=== PATIENT | male | born 1990 | race African-American/Black ===

== ENCOUNTER 2021-04-07 08:38 | Inpatient (IN) | payer OTHER ==
[2021-04-07] MEDS ORDERED: BISMUTH SUBSALICYLATE 524 MG/30 ML PO PRN (10:51)
[2021-04-07] MEDS ORDERED: MAG HYDROX/AL HYDROX/SIMETH 30 ML UNIT-DOSE CUP PO PRN (10:51)
[2021-04-07] MEDS ORDERED: chlordiazePOXIDE HCL 25 MG CAPSULE PO ONE (10:51)
[2021-04-07] MEDS ORDERED: chlordiazePOXIDE HCL 25 MG CAPSULE PO PRN (10:51)
[2021-04-07] MEDS ORDERED: MAGNESIUM HYDROX 2400MG/30ML ORAL SUSPENSION 30 ML CUP PO PRN (10:51)
[2021-04-07] MEDS ORDERED: MAGNESIUM CITRATE 300 ML BOTTLE PO PRN (10:51)
[2021-04-07] MEDS ORDERED: ACETAMINOPHEN 325 MG TABLET (FP) PO PRN (10:51)
[2021-04-07] MEDS ORDERED: MENTHOL/PHENOL 1 EACH UD MM PRN (10:51)
[2021-04-07] MEDS ORDERED: ALBUTEROL SO4 HFA INHALER IH PRN (11:00)
[2021-04-07 12:01] VITALS: BMI 20.9
[2021-04-07] MEDS: PRENATAL VITAMINS W/ FOLIC ACID TABLET (FP) PO SCH (12:10)
[2021-04-07] MEDS: chlordiazePOXIDE HCL 25 MG CAPSULE PO SCH ×2 (17:55→22:25)
[2021-04-07] MEDS: THIAMINE HCL 100 MG TABLET (FP) PO SCH (22:26)
[2021-04-07] MEDS: MELATONIN 5 MG TABLETS PO SCH (22:26)
[2021-04-08] MEDS: chlordiazePOXIDE HCL 25 MG CAPSULE PO SCH ×4 (06:30→22:12)
[2021-04-08 10:15] LABS: HEMATOCRIT 39.6 % (35.4-49); HEMOGLOBIN 12.6 GM/dL (11.7-16.9); MCH 26.6 pg (25.7-33.7); MCHC 31.8 g/dl (32.0-35.9); MEAN CELL VOLUME 83.6 fl (80-96); MEAN PLT VOLUME 8.3 fl (7.5-11.1); PLATELET COUNT 265 10^3/uL (134-434); RBC 4.74 M/mm3 (4.00-5.60); RDW 13.1 % (11.9-15.9); WHITE BLOOD COUNT 4.2 K/mm3 (4.0-10.0)
[2021-04-08 10:18] LABS: ALBUMIN 4.3 g/dl (3.4-5.0); CALCIUM 9.3 mg/dL (8.5-10.1)
[2021-04-08] MEDS: PRENATAL VITAMINS W/ FOLIC ACID TABLET (FP) PO SCH (10:18)
[2021-04-08 10:19] LABS: BLOOD UREA NITROGEN 6.4 mg/dL (7-18)
[2021-04-08] MEDS: FLUoxetine HCL 20 MG CAPSULE PO SCH (10:19)
[2021-04-08 10:21] LABS: CREATININE 0.8 mg/dL (0.55-1.3)
[2021-04-08 10:22] LABS: TOT PROT 7.6 g/dl (6.4-8.2)
[2021-04-08 10:23] LABS: BILIRUBIN,TOTAL 0.6 mg/dL (0.2-1)
[2021-04-08 11:57] LABS: SICKLE CELL SCREEN NEGATIVE (NEGATIVE)
[2021-04-08] MEDS: hydrOXYzine PAMOATE 25 MG CAPSULE (FP) PO SCH ×4 (12:44→22:12)
[2021-04-08] MEDS: ACETAMINOPHEN 325 MG TABLET (FP) PO PRN (17:38)
[2021-04-08] MEDS: MELATONIN 5 MG TABLETS PO SCH (22:12)
[2021-04-08] MEDS: THIAMINE HCL 100 MG TABLET (FP) PO SCH (22:12)
[2021-04-09] MEDS: chlordiazePOXIDE HCL 25 MG CAPSULE PO SCH ×4 (05:25→22:08)
[2021-04-09] MEDS: hydrOXYzine PAMOATE 25 MG CAPSULE (FP) PO SCH ×6 (05:26→22:08)
[2021-04-09] MEDS: PRENATAL VITAMINS W/ FOLIC ACID TABLET (FP) PO SCH (10:23)
[2021-04-09] MEDS: FLUoxetine HCL 20 MG CAPSULE PO SCH (10:23)
[2021-04-09] MEDS: ACETAMINOPHEN 325 MG TABLET (FP) PO PRN (10:24)
[2021-04-09] MEDS: THIAMINE HCL 100 MG TABLET (FP) PO SCH (22:07)
[2021-04-09] MEDS: MELATONIN 5 MG TABLETS PO SCH (22:08)
[2021-04-09] MEDS: ONDANSETRON *ODT* 4 MG TABLET SL PRN (22:08)
[2021-04-10] MEDS ORDERED: chlordiazePOXIDE HCL 10 MG CAPSULE PO PRN
[2021-04-10] MEDS: hydrOXYzine PAMOATE 25 MG CAPSULE (FP) PO SCH ×6 (03:33→22:07)
[2021-04-10] MEDS: chlordiazePOXIDE HCL 10 MG CAPSULE PO SCH ×4 (05:25→22:07)
[2021-04-10] MEDS: ACETAMINOPHEN 325 MG TABLET (FP) PO PRN ×2 (05:25→10:29)
[2021-04-10] MEDS: ONDANSETRON *ODT* 4 MG TABLET SL PRN (07:29)
[2021-04-10] MEDS: PRENATAL VITAMINS W/ FOLIC ACID TABLET (FP) PO SCH (10:29)
[2021-04-10] MEDS: FLUoxetine HCL 20 MG CAPSULE PO SCH (10:29)
[2021-04-10] MEDS: IBUPROFEN 400 MG TABLET (FP) PO PRN (17:42)
[2021-04-10] MEDS: MELATONIN 5 MG TABLETS PO SCH (22:07)
[2021-04-10] MEDS: THIAMINE HCL 100 MG TABLET (FP) PO SCH (22:07)
[2021-04-11] MEDS: hydrOXYzine PAMOATE 25 MG CAPSULE (FP) PO SCH ×6 (03:50→22:10)
[2021-04-11] MEDS: chlordiazePOXIDE HCL 10 MG CAPSULE PO SCH ×2 (05:18→17:41)
[2021-04-11] MEDS: ONDANSETRON *ODT* 4 MG TABLET SL PRN (05:20)
[2021-04-11] MEDS: PRENATAL VITAMINS W/ FOLIC ACID TABLET (FP) PO SCH (10:02)
[2021-04-11] MEDS: FLUoxetine HCL 20 MG CAPSULE PO SCH (10:02)
[2021-04-11] MEDS: METHOCARBAMOL 500 MG TABLET PO PRN ×2 (10:07→17:42)
[2021-04-11] MEDS ORDERED: chlordiazePOXIDE 5 MG CAPSULE ONE (16:48)
[2021-04-11] MEDS: NICOTINE 10 MG CARTRIDGE (INHALER) IH PRN ×2 (17:44→22:12)
[2021-04-11] MEDS: THIAMINE HCL 100 MG TABLET (FP) PO SCH (22:10)
[2021-04-11] MEDS: MELATONIN 5 MG TABLETS PO SCH (22:10)
[2021-04-11] MEDS: IBUPROFEN 400 MG TABLET (FP) PO PRN (22:28)
[2021-04-12] MEDS: METHYL SALICYLATE/MENTHOL OINT 30 GM TUBE TP SCH ×2 (00:55→11:34)
[2021-04-12] MEDS: hydrOXYzine PAMOATE 25 MG CAPSULE (FP) PO SCH ×3 (01:11→11:31)
[2021-04-12] MEDS ORDERED: chlordiazePOXIDE HCL 10 MG CAPSULE PO ONE (05:00)
[2021-04-12 07:26] VITALS: TEMP 98.4
[2021-04-12 08:58] VITALS: BP 111/72; PULSE 96
[2021-04-12] MEDS: PRENATAL VITAMINS W/ FOLIC ACID TABLET (FP) PO SCH (11:28)
[2021-04-12] MEDS: ONDANSETRON *ODT* 4 MG TABLET SL PRN (11:31)
[2021-04-12] MEDS: FLUoxetine HCL 20 MG CAPSULE PO SCH (11:31)
[2021-04-12] MEDS: IBUPROFEN 400 MG TABLET (FP) PO PRN (11:33)
== END 2021-04-12 12:02 | disposition other institution (70) | DRG 775 ==
LOC: YASAS 08:38 → Y3N 13:13
PROVIDERS: ADMIT Allergy & Immunology; ATTEND Allergy & Immunology
PROC: HZ2ZZZZ Detoxification Services for Substance Abuse Treatment (ICD-10-PCS; principal; 2021-04-07)
DX: F10.230 Alcohol dependence with withdrawal, uncomplicated (principal); F17.210 Nicotine dependence, cigarettes, uncomplicated; F10.280 Alcohol dependence with alcohol-induced anxiety disorder; F10.282 Alcohol dependence with alcohol-induced sleep disorder; F32.A Depression, unspecified; F43.10 Post-traumatic stress disorder, unspecified; F41.9 Anxiety disorder, unspecified; J45.20 Mild intermittent asthma, uncomplicated; M54.50 Low back pain, unspecified; G89.29 Other chronic pain; Z96.643 Presence of artificial hip joint, bilateral; Z86.69 Personal history of other diseases of the nervous system and sense organs; Z88.5 Allergy status to narcotic agent; Z91.018 Allergy to other foods; Z86.59 Personal history of other mental and behavioral disorders
CPT/HCPCS: 36415; 80053; 85027; 85660; 86780; C9803-CS; Q0162; U0003; U0005

== ENCOUNTER 2021-04-12 12:13 | Inpatient (IN) | payer OTHER ==
[2021-04-12] MEDS ORDERED: ACETAMINOPHEN 325 MG TABLET (FP) PO PRN (14:38)
[2021-04-12] MEDS ORDERED: MAG HYDROX/AL HYDROX/SIMETH 30 ML UNIT-DOSE CUP PO PRN (14:38)
[2021-04-12] MEDS ORDERED: MAGNESIUM HYDROX 2400MG/30ML ORAL SUSPENSION 30 ML CUP PO PRN (14:38)
[2021-04-12] MEDS ORDERED: P-EPHED 60MG/TRIPROLIDI 2.5MG TABLET PO PRN (14:38)
[2021-04-12] MEDS ORDERED: IBUPROFEN 400 MG TABLET (FP) PO PRN (14:38)
[2021-04-12] MEDS ORDERED: MAGNESIUM CITRATE 300 ML BOTTLE PO PRN (14:38)
[2021-04-12] MEDS ORDERED: NICOTINE 10 MG CARTRIDGE (INHALER) IH PRN (14:38)
[2021-04-12] MEDS ORDERED: guaiFENesin 200 MG/10 ML 10 ML UNIT-DOSE CUPS PO PRN (14:38)
[2021-04-12] MEDS ORDERED: LOPERAMIDE HCL 2 MG CAPSULE PO PRN (14:38)
[2021-04-12] MEDS ORDERED: ALBUTEROL SO4 HFA INHALER IH PRN (14:41)
[2021-04-12] MEDS ORDERED: PATIENT'S OWN MEDICATION (NON-FORMULARY) (Hydroxyzine Hcl [Hydroxyzine Hcl] 50 MG Tablet) PO SCH (14:45)
[2021-04-12] MEDS: NICOTINE 7 MG/24 HOURS TOPICAL PATCH TD SCH (15:51)
[2021-04-12] MEDS: PRENATAL VITAMINS W/ FOLIC ACID TABLET (FP) PO SCH (15:51)
[2021-04-12] MEDS: hydrOXYzine PAMOATE 50 MG CAPSULE (FP) PO SCH (18:05)
[2021-04-12] MEDS ORDERED: MELATONIN 5 MG TABLETS PO SCH (22:00)
[2021-04-12] MEDS ORDERED: THIAMINE HCL 100 MG TABLET (FP) PO SCH (22:00)
[2021-04-13] MEDS: hydrOXYzine PAMOATE 50 MG CAPSULE (FP) PO SCH ×3 (00:12→12:10)
[2021-04-13 09:46] VITALS: BP 96/63; PULSE 91; TEMP 98.7
[2021-04-13] MEDS ORDERED: FLUoxetine HCL 20 MG CAPSULE PO SCH (10:00)
[2021-04-13] MEDS: NICOTINE 7 MG/24 HOURS TOPICAL PATCH TD SCH ×2 (10:22→10:53)
[2021-04-13] MEDS: PRENATAL VITAMINS W/ FOLIC ACID TABLET (FP) PO SCH (10:24)
== END 2021-04-13 14:35 | disposition home or self-care (01) | DRG 772 ==
LOC: YASAS 12:13 → Y5N 12:14
PROVIDERS: ADMIT Allergy & Immunology; ATTEND Allergy & Immunology
PROC: HZ42ZZZ Group Counseling for Substance Abuse Treatment, Cognitive-Behavioral (ICD-10-PCS; principal; 2021-04-12)
DX: F10.20 Alcohol dependence, uncomplicated (principal); F32.A Depression, unspecified; U07.1 COVID-19; A08.4 Viral intestinal infection, unspecified; J45.909 Unspecified asthma, uncomplicated; G40.909 Epilepsy, unspecified, not intractable, without status epilepticus; Z86.59 Personal history of other mental and behavioral disorders; Z88.5 Allergy status to narcotic agent; Z91.018 Allergy to other foods
CPT/HCPCS: 36415; 86803; 87070; C9803; U0003; U0005

== ENCOUNTER 2021-06-20 01:10 | Inpatient (IN) | payer OTHER ==
[2021-06-20 01:39] VITALS: BMI 21.8
[2021-06-20] MEDS ORDERED: MAGNESIUM CITRATE 300 ML BOTTLE PO PRN (02:26)
[2021-06-20] MEDS ORDERED: ACETAMINOPHEN 325 MG TABLET (FP) PO PRN (02:26)
[2021-06-20] MEDS ORDERED: ONDANSETRON *ODT* 4 MG TABLET SL PRN (02:26)
[2021-06-20] MEDS ORDERED: MAG HYDROX/AL HYDROX/SIMETH 30 ML UNIT-DOSE CUP PO PRN (02:26)
[2021-06-20] MEDS ORDERED: MAGNESIUM HYDROX 2400MG/30ML ORAL SUSPENSION 30 ML CUP PO PRN (02:26)
[2021-06-20] MEDS ORDERED: NICOTINE 10 MG CARTRIDGE (INHALER) IH PRN (02:26)
[2021-06-20] MEDS ORDERED: BISMUTH SUBSALICYLATE 524 MG/30 ML PO PRN (02:26)
[2021-06-20] MEDS ORDERED: MENTHOL/PHENOL 1 EACH UD MM PRN (02:26)
[2021-06-20] MEDS ORDERED: LOPERAMIDE HCL 2 MG CAPSULE PO PRN (02:26)
[2021-06-20] MEDS ORDERED: chlordiazePOXIDE HCL 25 MG CAPSULE PO PRN (02:53)
[2021-06-20] MEDS ORDERED: hydrOXYzine PAMOATE 25 MG CAPSULE (FP) PO SCH (06:00)
[2021-06-20] MEDS: chlordiazePOXIDE HCL 25 MG CAPSULE PO SCH ×4 (07:05→22:10)
[2021-06-20] MEDS: ACETAMINOPHEN 325 MG TABLET (FP) PO PRN (07:07)
[2021-06-20] MEDS: METHOCARBAMOL 500 MG TABLET PO PRN (10:18)
[2021-06-20] MEDS: PRENATAL VITAMINS W/ FOLIC ACID TABLET (FP) PO SCH (10:18)
[2021-06-20] MEDS: hydrOXYzine PAMOATE 25 MG CAPSULE (FP) PO PRN (10:18)
[2021-06-20] MEDS: FLUoxetine HCL 20 MG CAPSULE PO SCH (10:18)
[2021-06-20] MEDS: IBUPROFEN 400 MG TABLET (FP) PO PRN (10:22)
[2021-06-20] MEDS ORDERED: ALBUTEROL SO4 HFA INHALER IH PRN (14:17)
[2021-06-20] MEDS: THIAMINE HCL 100 MG TABLET (FP) PO SCH (22:10)
[2021-06-20] MEDS: PATIENT'S OWN MEDICATION (NON-FORMULARY) (Spironolactone [Aldactone] 50 MG Tablet) PO SCH (22:10)
[2021-06-20] MEDS ORDERED: SUVOREXANT 10 MG TABLET PO ONE (23:15)
[2021-06-20] MEDS: MELATONIN 5 MG TABLETS PO SCH (23:44)
[2021-06-21] MEDS: chlordiazePOXIDE HCL 25 MG CAPSULE PO SCH ×4 (05:53→22:21)
[2021-06-21 10:46] LABS: HEMATOCRIT 36.8 % (35.4-49); HEMOGLOBIN 12.5 GM/dL (11.7-16.9); MCH 26.3 pg (25.7-33.7); MEAN CELL VOLUME 77.3 fl (80-96); MEAN PLT VOLUME 7.7 fl (7.5-11.1); PLATELET COUNT 310 10^3/uL (134-434); RBC 4.76 M/mm3 (4.00-5.60); RDW 12.6 % (11.9-15.9); WHITE BLOOD COUNT 4.3 K/mm3 (4.0-10.0)
[2021-06-21] MEDS: PATIENT'S OWN MEDICATION (NON-FORMULARY) (Spironolactone [Aldactone] 50 MG Tablet) PO SCH ×2 (10:51→22:21)
[2021-06-21] MEDS: PRENATAL VITAMINS W/ FOLIC ACID TABLET (FP) PO SCH (10:51)
[2021-06-21] MEDS: FLUoxetine HCL 20 MG CAPSULE PO SCH (10:52)
[2021-06-21] MEDS: hydrOXYzine PAMOATE 25 MG CAPSULE (FP) PO PRN ×2 (10:52→18:18)
[2021-06-21] MEDS: IBUPROFEN 400 MG TABLET (FP) PO PRN (10:55)
[2021-06-21 11:27] LABS: CALCIUM 9.1 mg/dL (8.5-10.1)
[2021-06-21 11:28] LABS: ALBUMIN 4.1 g/dl (3.4-5.0); BLOOD UREA NITROGEN 15.6 mg/dL (7-18)
[2021-06-21 11:31] LABS: CREATININE 1.1 mg/dL (0.55-1.3)
[2021-06-21 11:33] LABS: BILIRUBIN,TOTAL 0.5 mg/dL (0.2-1); TOT PROT 7.3 g/dl (6.4-8.2)
[2021-06-21] MEDS: MELATONIN 5 MG TABLETS PO SCH (22:20)
[2021-06-21] MEDS: THIAMINE HCL 100 MG TABLET (FP) PO SCH (22:21)
[2021-06-22] MEDS ORDERED: chlordiazePOXIDE HCL 10 MG CAPSULE PO PRN
[2021-06-22] MEDS: ACETAMINOPHEN 325 MG TABLET (FP) PO PRN ×2 (03:36→18:24)
[2021-06-22] MEDS: chlordiazePOXIDE HCL 10 MG CAPSULE PO SCH ×4 (05:55→22:21)
[2021-06-22] MEDS: PRENATAL VITAMINS W/ FOLIC ACID TABLET (FP) PO SCH (10:22)
[2021-06-22] MEDS: PATIENT'S OWN MEDICATION (NON-FORMULARY) (Spironolactone [Aldactone] 50 MG Tablet) PO SCH ×2 (10:22→22:21)
[2021-06-22] MEDS: METHOCARBAMOL 500 MG TABLET PO PRN (10:23)
[2021-06-22] MEDS: FLUoxetine HCL 20 MG CAPSULE PO SCH (10:23)
[2021-06-22] MEDS: hydrOXYzine PAMOATE 25 MG CAPSULE (FP) PO PRN ×2 (13:52→22:20)
[2021-06-22] MEDS ORDERED: SUVOREXANT 10 MG TABLET PO PRN (22:00)
[2021-06-22] MEDS: THIAMINE HCL 100 MG TABLET (FP) PO SCH (22:20)
[2021-06-22] MEDS: MELATONIN 5 MG TABLETS PO SCH (22:20)
[2021-06-22] MEDS: SPIRONOLACTONE 25 MG TABLET PO SCH (22:23)
[2021-06-23] MEDS ORDERED: chlordiazePOXIDE HCL 10 MG CAPSULE PO SCH (05:00)
[2021-06-23] MEDS: IBUPROFEN 400 MG TABLET (FP) PO PRN (05:21)
[2021-06-23 05:57] VITALS: TEMP 97.5
[2021-06-23] MEDS: hydrOXYzine PAMOATE 25 MG CAPSULE (FP) PO PRN (10:44)
[2021-06-23] MEDS: PRENATAL VITAMINS W/ FOLIC ACID TABLET (FP) PO SCH (10:44)
[2021-06-23] MEDS: METHOCARBAMOL 500 MG TABLET PO PRN (10:44)
[2021-06-23] MEDS: FLUoxetine HCL 20 MG CAPSULE PO SCH (10:44)
[2021-06-23] MEDS: PATIENT'S OWN MEDICATION (NON-FORMULARY) (Spironolactone [Aldactone] 50 MG Tablet) PO SCH (10:47)
[2021-06-23] MEDS: SPIRONOLACTONE 25 MG TABLET PO SCH (10:47)
[2021-06-23 13:34] VITALS: BP 108/69; PULSE 88
[2021-06-24] MEDS ORDERED: chlordiazePOXIDE HCL 10 MG CAPSULE PO ONE (05:00)
== END 2021-06-23 13:16 | disposition left against medical advice (07) | DRG 770 ==
LOC: YASAS 01:10 → Y6N 02:54
PROVIDERS: ADMIT Allergy & Immunology; ATTEND Allergy & Immunology
PROC: HZ2ZZZZ Detoxification Services for Substance Abuse Treatment (ICD-10-PCS; principal; 2021-06-20)
DX: F10.230 Alcohol dependence with withdrawal, uncomplicated (principal); F10.280 Alcohol dependence with alcohol-induced anxiety disorder; F10.282 Alcohol dependence with alcohol-induced sleep disorder; F43.10 Post-traumatic stress disorder, unspecified; F32.A Depression, unspecified; J45.20 Mild intermittent asthma, uncomplicated; K21.9 Gastro-esophageal reflux disease without esophagitis; M54.50 Low back pain, unspecified; G89.29 Other chronic pain; Z62.810 Personal history of physical and sexual abuse in childhood; Z96.643 Presence of artificial hip joint, bilateral; Z88.6 Allergy status to analgesic agent; Z91.018 Allergy to other foods
CPT/HCPCS: 36415; 80053; 85027; 86780; 93005; 93010; C9803-CS; U0003; U0005